=== PATIENT | female | born 1980 | race African-American/Black ===

== ENCOUNTER 2020-11-24 00:30 | Inpatient (IN) | payer BC ==
[2020-11-24] MEDS ORDERED: ELECTROLYTE-148 SOLN 500 ML IV ONE (01:00)
[2020-11-24] MEDS: ELECTROLYTE-148 SOLN 1,000 ML IV SCH (01:30)
[2020-11-24] MEDS ORDERED: PROMETHAZINE HCL 25 MG/1 ML VIAL IVPB ONE (02:00)
[2020-11-24 02:10] LABS: BASO % 0.3 % (0-2.0); EOS % 0.7 % (0-4.5); HEMATOCRIT 36.1 % (32.4-45.2); HEMOGLOBIN 11.8 GM/dL (10.7-15.3); LYMPH % 20.9 % (8-40); MCH 27.3 pg (25.7-33.7); MCHC 32.8 g/dl (32.0-36.0); MEAN CELL VOLUME 83.3 fl (80-96); MEAN PLT VOLUME 10.4 fl (7.5-11.1); MONO % 15.5 % (3.8-10.2); NEUT % 62.6 % (42.8-82.8); PLATELET COUNT 210 K/MM3 (134-434); RBC 4.33 M/mm3 (3.60-5.2); RDW 13.6 % (11.6-15.6); WHITE BLOOD COUNT 6.7 K/mm3 (4.0-10.0)
[2020-11-24 02:23] LABS: INR 0.92 (0.83-1.09); PROTHROMBIN TIME (PATIENT) 11.3 SEC (9.7-13.0)
[2020-11-24 02:26] VITALS: BMI 30.4
[2020-11-24 02:26] LABS: ACTIVATED PTT 26.6 SECONDS (25.2-36.5)
[2020-11-24] MEDS ORDERED: CITRIC ACID/SODIUM CITRATE 30 ML UNIT-DOSE CUP PO ONE (02:30)
[2020-11-24 02:43] LABS: CALCIUM 8.9 mg/dL (8.5-10.1)
[2020-11-24 02:44] LABS: BLOOD UREA NITROGEN 7.3 mg/dL (7-18)
[2020-11-24 02:47] LABS: CREATININE 0.5 mg/dL (0.55-1.3)
[2020-11-24 03:41] LABS: HIV INTERPRETATION NEGATIVE (NEGATIVE)
[2020-11-24] MEDS ORDERED: ONDANSETRON 4 MG/2 ML VIAL IVPUSH PRN (06:47)
[2020-11-24] MEDS ORDERED: morphine SULFATE/PF 0.5 MG/ML (2cc Syringe - QUVA) ONE (07:01)
[2020-11-24] MEDS ORDERED: IBUPROFEN 600 MG TABLET (FP) PO PRN (08:36)
[2020-11-24] MEDS ORDERED: oxyCODONE HCL 5 MG TABLET PO PRN (08:36)
[2020-11-24] MEDS ORDERED: ACETAMINOPHEN 325 MG TABLET (FP) PO PRN (08:36)
[2020-11-24] MEDS ORDERED: ACETAMINOPHEN 1000 MG/100 ML VIAL (NON FORMULARY) IVPB PRN (08:36)
[2020-11-24] MEDS ORDERED: IBUPROFEN 800 MG/8 ML IJ IVPB PRN (08:36)
[2020-11-24] MEDS ORDERED: ONDANSETRON 4 MG/2 ML VIAL IVPB PRN (08:36)
[2020-11-24] MEDS ORDERED: CEFAZOLIN 2 GM/D5W 2 GM/50 ML ML IVPB SCH (10:00)
[2020-11-24] MEDS: OXYTOCIN 20 UNITS in 0.9% NS 20 UNIT/1,000 ML INFUS.BAG IV SCH (13:30)
[2020-11-24] MEDS: CEFAZOLIN 2 GM/D5W 2 GM/50 ML ML IVPB SCH ×2 (16:30→23:34)
[2020-11-25] MEDS: SIMETHICONE 80 MG TAB.CHEW (FP) PO PRN ×3 (05:39→20:45)
[2020-11-25] MEDS: IBUPROFEN 600 MG TABLET (FP) PO PRN ×3 (05:40→22:43)
[2020-11-25] MEDS: ACETAMINOPHEN 325 MG TABLET (FP) PO PRN ×3 (05:41→22:44)
[2020-11-25] MEDS ORDERED: BISACODYL 10 MG SUPP.RECT RC PRN (08:36)
[2020-11-25 09:24] LABS: BASO % 0.4 % (0-2.0); EOS % 0.3 % (0-4.5); HEMATOCRIT 32.8 % (32.4-45.2); HEMOGLOBIN 10.7 GM/dL (10.7-15.3); LYMPH % 18.3 % (8-40); MCH 26.8 pg (25.7-33.7); MCHC 32.6 g/dl (32.0-36.0); MEAN CELL VOLUME 82.2 fl (80-96); MEAN PLT VOLUME 9.9 fl (7.5-11.1); MONO % 8.2 % (3.8-10.2); NEUT % 72.8 % (42.8-82.8); PLATELET COUNT 214 K/MM3 (134-434); RBC 3.99 M/mm3 (3.60-5.2); RDW 13.4 % (11.6-15.6); WHITE BLOOD COUNT 13.2 K/mm3 (4.0-10.0)
[2020-11-25 12:18] LABS: POC NITRAZINE NEG
[2020-11-25] MEDS: SENNOSIDES/DOCUSATE COMBO (SENNA PLUS) TABLET (UD) PO PRN (20:45)
[2020-11-25] MEDS: OXYTOCIN 20 UNITS in 0.9% NS 20 UNIT/1,000 ML INFUS.BAG IV SCH (22:40)
[2020-11-25] MEDS: ELECTROLYTE-148 SOLN 1,000 ML IV SCH (22:40)
[2020-11-26] MEDS: SIMETHICONE 80 MG TAB.CHEW (FP) PO PRN ×2 (12:50→19:36)
[2020-11-26] MEDS: ACETAMINOPHEN 325 MG TABLET (FP) PO PRN ×2 (12:50→22:31)
[2020-11-26] MEDS: IBUPROFEN 600 MG TABLET (FP) PO PRN ×2 (12:50→22:31)
[2020-11-26] MEDS: SENNOSIDES/DOCUSATE COMBO (SENNA PLUS) TABLET (UD) PO PRN (19:36)
[2020-11-27 09:44] VITALS: BP 112/70; PULSE 77; TEMP 99
[2020-11-27] MEDS: IBUPROFEN 600 MG TABLET (FP) PO PRN (13:09)
[2020-11-27] MEDS: ACETAMINOPHEN 325 MG TABLET (FP) PO PRN (13:10)
== END 2020-11-27 14:00 | disposition home or self-care (01) | DRG 788 ==
LOC: JDEL 00:30 → JLDR 01:00 → J3W 10:20
PROVIDERS: ADMIT Specialist; ATTEND Specialist
PROC: 10D00Z1 Extraction of Products of Conception, Low, Open Approach (ICD-10-PCS; principal; 2020-11-24)
PROC: 0DNW0ZZ Release Peritoneum, Open Approach (ICD-10-PCS; 2020-11-24)
PROC: 0UB90ZZ Excision of Uterus, Open Approach (ICD-10-PCS; 2020-11-24)
DX: O34.211 Maternal care for low transverse scar from previous cesarean delivery (principal); O42.92 Full-term premature rupture of membranes, unspecified as to length of time between rupture and onset of labor; O99.892 Other specified diseases and conditions complicating childbirth; N73.6 Female pelvic peritoneal adhesions (postinfective); Z3A.39 39 weeks gestation of pregnancy; Z37.0 Single live birth; O34.13 Maternal care for benign tumor of corpus uteri, third trimester; D25.9 Leiomyoma of uterus, unspecified
CPT/HCPCS: 36415; 80048; 83986-QW; 85025; 85610; 85730; 86780; 86850; 86900; 86901; 87389; 88305-TC; 88307-TC; C9803; U0003; U0005

== ENCOUNTER 2022-04-06 04:53 | Day surgery (SDC) | payer OTHER ==
[2022-04-02 15:36] VITALS: BMI 30.2
[2022-04-06] MEDS ORDERED: MIDAZOLAM HCL 2 MG/2 ML SINGLE DOSE VIAL ONE (14:26)
[2022-04-06] MEDS ORDERED: ceFAZolin SODIUM 1 GM VIAL IVPB ONE (15:21)
[2022-04-06] MEDS ORDERED: DEXAMETHASONE SOD PHOSPHATE 4 MG/1 ML VIAL ONE (15:24)
[2022-04-06] MEDS ORDERED: ONDANSETRON 4 MG/2 ML VIAL ONE (15:24)
[2022-04-06] MEDS ORDERED: PROPOFOL 20 ML ONE ×2 (15:31)
[2022-04-06] MEDS ORDERED: ONDANSETRON 4 MG/2 ML VIAL IVPUSH PRN (15:46)
[2022-04-06] MEDS ORDERED: oxyCODONE HCL 5 MG TABLET PO PRN (15:46)
[2022-04-06] MEDS ORDERED: IBUPROFEN 800 MG/8 ML IJ IVPB PRN (15:46)
[2022-04-06] MEDS ORDERED: LACTATED RINGERS SOLUTION 1,000 ML IV SCH (16:00)
[2022-04-06] MEDS ORDERED: IBUPROFEN 400 MG TABLET (FP) PO PRN (16:04)
[2022-04-06] MEDS ORDERED: ACETAMINOPHEN 325 MG TABLET (FP) PO PRN (16:04)
[2022-04-06 18:03] VITALS: RESP 18; TEMP 98
[2022-04-06 18:04] VITALS: BP 113/63; PULSE 68
== END 2022-04-06 18:14 | disposition home or self-care (01) ==
LOC: JASU-SURG 04:53
PROVIDERS: ATTEND Specialist
PROC: 10D17ZZ Extraction of Products of Conception, Retained, Via Natural or Artificial Opening (ICD-10-PCS; principal; 2022-04-06 14:00)
DX: O02.1 Missed abortion (principal); Z3A.11 11 weeks gestation of pregnancy
CPT/HCPCS: 88305-TC

== ENCOUNTER 2023-11-23 23:10 | Inpatient (IN) | payer OTHER ==
[2023-11-23] MEDS: ELECTROLYTE-148 SOLN 500 ML IV ONE (23:20)
[2023-11-23 23:55] LABS: BASO % 0.3 % (0-2.0); EOS % 0.9 % (0-4.5); HEMATOCRIT 37.6 % (32.4-45.2); HEMOGLOBIN 12.5 GM/dL (10.7-15.3); LYMPH % 19.1 % (8-40); MCH 26.8 pg (25.7-33.7); MCHC 33.3 g/dl (32.0-36.0); MEAN CELL VOLUME 80.4 fl (80-96); MEAN PLT VOLUME 9.1 fl (7.5-11.1); MONO % 14.4 % (3.8-10.2); NEUT % 65.3 % (42.8-82.8); PLATELET COUNT 227 10^3/uL (134-434); RBC 4.67 M/mm3 (3.60-5.2); RDW 13.8 % (11.6-15.6)
[2023-11-24 00:02] LABS: INR 0.94 (0.83-1.09); PROTHROMBIN TIME (PATIENT) 10.6 SEC (9.7-13.0)
[2023-11-24 00:05] VITALS: BMI 31.9
[2023-11-24 00:05] LABS: ACTIVATED PTT 26.1 SECONDS (25.2-36.5)
[2023-11-24] MEDS ORDERED: TERBUTALINE SULFATE 1 MG/1 ML VIAL SQ ONE (00:15)
[2023-11-24 00:16] LABS: CALCIUM 8.8 mg/dL (8.5-10.1)
[2023-11-24 00:17] LABS: BLOOD UREA NITROGEN 8.4 mg/dL (7-18)
[2023-11-24 00:20] LABS: CREATININE 0.5 mg/dL (0.55-1.3)
[2023-11-24] MEDS: TERBUTALINE SULFATE 1 MG/1 ML VIAL SQ ONE ×2 (00:20→01:18)
[2023-11-24] MEDS: ELECTROLYTE-148 SOLN 1,000 ML IV SCH (00:30)
[2023-11-24 01:15] LABS: HIV INTERPRETATION NEGATIVE (NEGATIVE)
[2023-11-24] MEDS ORDERED: ONDANSETRON 4 MG/2 ML VIAL IVPUSH PRN (01:29)
[2023-11-24] MEDS: CITRIC ACID/SODIUM CITRATE 30 ML UNIT-DOSE CUP PO ONE (01:30)
[2023-11-24] MEDS ORDERED: morphine SULFATE/PF 1 MG/2 ML (2cc Syringe - QUVA) ONE (01:46)
[2023-11-24] MEDS ORDERED: SODIUM CHLORIDE 0.9% P/F 10 ML VIAL IJ ONE (01:46)
[2023-11-24] MEDS ORDERED: ceFAZolin SODIUM 1 GM VIAL ONE (01:46)
[2023-11-24] MEDS ORDERED: OXYTOCIN 10 UNITS/ML VIAL ONE ×2 (02:27→02:43)
[2023-11-24] MEDS ORDERED: METOCLOPRAMIDE HCL INJECTION 10 MG/2 ML VIAL ONE (02:41)
[2023-11-24] MEDS ORDERED: ONDANSETRON 4 MG/2 ML VIAL ONE (02:41)
[2023-11-24] MEDS ORDERED: oxyCODONE HCL 5 MG TABLET PO PRN (03:21)
[2023-11-24] MEDS ORDERED: ONDANSETRON 4 MG/2 ML VIAL IVPB PRN (03:21)
[2023-11-24] MEDS ORDERED: ACETAMINOPHEN 325 MG TABLET (FP) PO PRN (03:21)
[2023-11-24] MEDS ORDERED: IBUPROFEN 600 MG TABLET (FP) PO PRN (03:21)
[2023-11-24] MEDS ORDERED: ACETAMINOPHEN 1000 MG/100 ML BAG IVPB PRN (03:21)
[2023-11-24] MEDS ORDERED: IBUPROFEN 800 MG/8 ML IJ IVPB ONE (05:25)
[2023-11-24] MEDS ORDERED: OXYTOCIN 20 UNITS in 0.9% NS 20 UNIT/1,000 ML INFUS.BAG IV ONE (05:26)
[2023-11-24] MEDS: IBUPROFEN 800 MG/8 ML IJ IVPB PRN (05:35)
[2023-11-24] MEDS: OXYTOCIN 20 UNITS in 0.9% NS 20 UNIT/1,000 ML INFUS.BAG IV SCH (05:35)
[2023-11-24] MEDS: morphine SULFATE/PF 1 MG/2 ML (2cc Syringe - QUVA) EP ONE (05:45)
[2023-11-24] MEDS: ACETAMINOPHEN 325 MG TABLET (FP) PO PRN (17:24)
[2023-11-24] MEDS: IBUPROFEN 600 MG TABLET (FP) PO PRN (21:44)
[2023-11-24] MEDS: SENNOSIDES/DOCUSATE COMBO (SENNA PLUS) TABLET (UD) PO SCH (21:45)
[2023-11-25] MEDS ORDERED: BISACODYL 10 MG SUPP.RECT RC PRN (03:21)
[2023-11-25 08:06] LABS: BASO % 0.4 % (0-2.0); EOS % 0.8 % (0-4.5); HEMATOCRIT 31.2 % (32.4-45.2); HEMOGLOBIN 10.5 GM/dL (10.7-15.3); LYMPH % 15.1 % (8-40); MCH 27.1 pg (25.7-33.7); MCHC 33.6 g/dl (32.0-36.0); MEAN CELL VOLUME 80.5 fl (80-96); MEAN PLT VOLUME 8.7 fl (7.5-11.1); MONO % 13.3 % (3.8-10.2); NEUT % 70.4 % (42.8-82.8); PLATELET COUNT 193 10^3/uL (134-434); RBC 3.88 M/mm3 (3.60-5.2); WHITE BLOOD COUNT 8.9 K/mm3 (4.0-10.0)
[2023-11-25 10:15] VITALS: RESP 18
[2023-11-25] MEDS: SIMETHICONE 80 MG TAB.CHEW (FP) PO PRN (12:17)
[2023-11-26 10:02] VITALS: BP 110/74; PULSE 80; TEMP 98
== END 2023-11-26 13:50 | disposition home or self-care (01) | DRG 540 ==
LOC: JDEL 23:10 → JLDR 23:34 → J3W 11-24 05:41
PROVIDERS: ADMIT Specialist; ATTEND Specialist
PROC: 10D00Z1 Extraction of Products of Conception, Low, Open Approach (ICD-10-PCS; principal; 2023-11-24)
DX: O34.211 Maternal care for low transverse scar from previous cesarean delivery (principal); O36.63X0 Maternal care for excessive fetal growth, third trimester, not applicable or unspecified; O34.13 Maternal care for benign tumor of corpus uteri, third trimester; D25.9 Leiomyoma of uterus, unspecified; Z3A.38 38 weeks gestation of pregnancy; Z37.0 Single live birth
CPT/HCPCS: 36415; 59025; 80048; 85025; 85610; 85730; 86780; 86850; 86900; 86901; 87389; 88307-TC